=== PATIENT | male | born 1985 | race Caucasian/White ===

== ENCOUNTER 2017-11-02 19:20 | Emergency (ER) | payer MEDICAID ==
[~2017-11-02 19:20] MED LIST: COU1 PO; COUMADIN7.5 MG PO; HUMULIN R100 U/1 M1 SC; LAC PO; LANTUS SOLOS100 U/M1 SQ; LEVAQUIN750 MG PO; LEVEMIR100 U/M1 SQ; METFORMIN HCL1000 MG PO; SUDOGEST30 MG PO; ZOC10 PO; [UNRECOGNIZED DRUG - OTHER] PO
[2017-11-02 20:51] LABS: BASOPHIL % 0.3 % (0-2); PLATELET COUNT 274 x10^3mcL (130-400); RED CELL DISTRIBUTION WIDTH 14.2 % (11.5-14.5)
[2017-11-02 22:15] VITALS: BP 120/67
== END 2017-11-02 22:15 | disposition home or self-care (01) ==
LOC: ED 19:20
PROVIDERS: Emergency Medicine Emergency Medical Services
DX: I82.402 Acute embolism and thrombosis of unspecified deep veins of left lower extremity (principal)
CPT/HCPCS: 36415; Q0092

== ENCOUNTER 2018-11-01 21:36 | Emergency (ER) | payer MEDICAID ==
[~2018-11-01] VITALS: Ht 167.6 cm; Wt 159.7 kg
[2018-11-01 21:41] VITALS: Ht 167.6 cm; Wt 159.7 kg
[2018-11-01 22:17] VITALS: BP 148/102
== END 2018-11-01 22:17 | disposition home or self-care (01) ==
LOC: ED 21:36
DX: S80.811A Abrasion, right lower leg, initial encounter (principal); R03.0 Elevated blood-pressure reading, without diagnosis of hypertension; X58.XXXA Exposure to other specified factors, initial encounter; Y93.89 Activity, other specified; Y92.89 Other specified places as the place of occurrence of the external cause; Y99.8 Other external cause status

== ENCOUNTER 2019-05-28 14:01 | Emergency (ER) | payer OTHER ==
[~2019-05-28] VITALS: Ht 167.6 cm; Wt 163.3 kg
[2019-05-28 14:11] VITALS: BP 124/71; Ht 167.6 cm; Wt 163.3 kg
== END 2019-05-28 18:22 | disposition home or self-care (01) ==
LOC: ED 14:01
DX: S92.351A Displaced fracture of fifth metatarsal bone, right foot, initial encounter for closed fracture (principal); E11.9 Type 2 diabetes mellitus without complications; E78.00 Pure hypercholesterolemia, unspecified; Z98.890 Other specified postprocedural states; W18.39XA Other fall on same level, initial encounter; Y93.89 Activity, other specified; Y92.89 Other specified places as the place of occurrence of the external cause; Y99.8 Other external cause status